=== PATIENT | male | born 1950 | race Caucasian/White ===

== ENCOUNTER 2023-12-25 21:11 | Emergency (ER) | payer MEDICARE, MEDICAID ==
[~2023-12-25] VITALS: Ht 170.2 cm; Wt 70.0 kg
[2023-12-25 21:21] VITALS: TEMP 98.6
[2023-12-25] MEDS ORDERED: CYCL-1 PO (22:22)
[2023-12-25 22:43] VITALS: BP 135/78; PULSE 76; RESP 14; O2SAT 97
== END 2023-12-25 22:44 | disposition home or self-care (01) ==
LOC: ER 21:12
DX: M25.511 Pain in right shoulder (principal); M25.512 Pain in left shoulder; Z88.8 Allergy status to other drugs, medicaments and biological substances
CPT/HCPCS: 99283